=== PATIENT | male | born 1970 | race Caucasian/White ===

== ENCOUNTER 2018-03-13 18:27 | Inpatient (IN) | payer OTHER ==
--- NOTE | 2018-03-13 18:31 | PDOC ---
Rapid Medical Evaluation Medical Evaluation: I have performed a brief in-person evaluation of this patient. The patient presents with a chief complaint of: C/o small amount of hematuria, urinary urgency, dysuria since 4 days ago. Also mentions having fever last night , but did not check temperature. Denies abdominal pain, n/v, penile discharge Pertinent physical exam findings: Mild L CVA TTP, abdomen soft, ND, NT I have ordered the following: Labs, UA, UCx The patient will proceed to the ED for further evaluation. 03/13/18 18:29
[2018-03-13] MEDS ORDERED: SODIUM CHLORIDE 1,000 ML IV STA (18:32)
--- NOTE | 2018-03-13 19:35 | PDOC ---
History of Present Illness - General Chief Complaint: Urinary Problem Stated Complaint: URINARY PROBLEM/FLANK PAIN/URINARY URGENCY Time Seen by Provider: 03/13/18 19:12 History Source: Patient Exam Limitations: No Limitations - History of Present Illness Initial Comments: 03/13/18 19:30 48 yo male no significant pmh presents to the ED for 4 days of blood and pain when urinating. Pt states he has also noticed increased frequency of urination with minimal output and small stones once in a while. Admits to subjective fevers, suprapubic, left flank and back pain but denies N/V, hx of STDs, penile discharge, CP, SOB or changes in bowel habits. Past History - Past Medical History Allergies/Adverse Reactions: Allergies Allergy/AdvReac Type Severity Reaction Status Date / Time No Known Allergies Allergy Verified 03/13/18 18:35 Home Medications: Ambulatory Orders NK [No Known Home Medication] 03/13/18 COPD: No - Suicide/Smoking/Psychosocial Hx Smoking History: Never smoked Information on smoking cessation initiated: No Hx Alcohol Use: No Drug/Substance Use Hx: No Review of Systems - Review of Systems Constitutional: No: Chills, Fever Respiratory: No: Shortness of Breath Cardiac (ROS): No: Chest Pain ABD/GI: Yes: Other (suprapubic abdominal pain). No: Constipated, Diarrhea, Nausea, Vomiting : Yes: Dysuria, Frequency, Flank Pain (left), Hematuria. No: Discharge Musculoskeletal: Yes: Back Pain (left cva and mild right cva) *Physical Exam - Vital Signs Last Vital Signs Temp Pulse Resp BP Pulse Ox 99.1 F 83 18 120/70 100 03/13/18 18:32 03/13/18 18:32 03/13/18 18:32 03/13/18 18:32 03/13/18 18:32 - Physical Exam General Appearance: Yes: Nourished, Appropriately Dressed. No: Apparent Distress HEENT: positive: EOMI Respiratory/Chest: positive: Lungs Clear, Normal Breath Sounds. negative: Accessory Muscle Use, Crackles, Wheezing Cardiovascular: positive: Regular Rhythm, Regular Rate, S1, S2. negative: Edema , JVD, Murmur Vascular Pulses: Dorsalis-Pedis (R): 4+, Doralis-Pedis (L): 4+ Gastrointestinal/Abdominal: positive: Normal Bowel Sounds, Flat, Soft, Tenderness (suprapubic and left flank). negative: Pulsatile Mass, Distended, Guarding, Rebound Musculoskeletal: positive: CVA Tenderness (bilateral, more on the left) Extremity: positive: Normal Capillary Refill Integumentary: positive: Normal Color, Dry, Warm Neurologic: positive: Fully Oriented, Alert, Normal Mood/Affect Moderate Sedation - Procedure Monitoring Vital Signs: Procedure Monitoring Vital Signs Temperature 99.1 F 03/13/18 18:32 Pulse Rate 83 03/13/18 18:32 Respiratory Rate 18 03/13/18 18:32 Blood Pressure 120/70 03/13/18 18:32 O2 Sat by Pulse Oximetry (%) 100 03/13/18 18:32 ED Treatment Course - LABORATORY CBC & Chemistry Diagram: 03/13/18 19:20 03/13/18 19:20 - RADIOLOGY Radiology Studies Ordered: Category Date Time Status SPIRAL- RENAL-STONE CT [CT] Stat CT Scan 03/13/18 19:30 Ordered Medical Decision Making - Medical Decision Making 03/13/18 19:41 48 yo presents to the ED with 4 days of dysuria, urgency, increased frequency, hematuria, suprapubic and left flank/cva tenderness. Vitals WNL DDX includes but is not limited to: Nephroli *DC/Admit/Observation/Transfer Diagnosis at time of Disposition: Pyelonephritis - Discharge Dispostion Condition at time of disposition: Stable Decision to Admit order: Yes - Referrals - Patient Instructions - Post Discharge Activity
--- NOTE | 2018-03-13 19:43 | PDOC ---
Attending Attestation - HPI HPI: 03/13/18 20:34 The patient is a 48 year old male with no past medical history here today for evaluation of hematuria and dysuria. The patient reports that his symptoms began 4 days ago and also notes increased frequency with minimal output and occasional stones in his urine. He also notes associated left flank, back, and suprapubic pain. Patient denies headache, lightheadedness. Denies fever, chills. Denies chest pain, shortness of breath. Denies nausea, vomiting, diarrhea, abdominal pain. Denies any change in bowel movements. Allergies: NKA PCP: none reported - Physicial Exam PE: 03/13/18 21:14 Constitutional: Awake, alert, oriented. No acute distress. Head: Normocephalic. Atraumatic Eyes: PERRL. EOMI. Conjunctivae are not pale. ENT: Mucous membranes are moist and intact. Posterior pharynx without exudates or erythema. Uvula midline. Neck: Supple. Full ROM. No lymphadenopathy. Cardiovascular: Regular rate. Regular rhythm. S1, S2 regular. Distal pulses are 2+ and symmetric. Pulmonary/Chest: No evidence of respiratory distress. Clear to auscultation bilaterally No wheezing, rales or rhonchi. Abdominal: +Suprapubic tenderness. Soft and non-distended. No rebound, guarding or rigidity. No organomegaly. No palpable masses. Good bowel sounds. Back: +right CVA tenderness. Musculoskeletal: No edema. No cyanosis. No clubbing. Full range of motion in all extremities. Nocalf tenderness. Radial/pedal pulses are intact and 2+ bilaterally Skin: Skin is warm and dry. No petechiae. No purpura. Neurological: Alert and oriented to person, place, and time. Cranial nerves II -XII are grossly intact. Normal speech. Strength is grossly symmetric. No sensory deficits. Psychiatric: Good eye contact. Normal interaction, affect and behavior. <Hiren Hays - Last Filed: 03/13/18 21:14> - Resident Resident Name: Rosales Erwin - ED Attending Attestation I have performed the following: I have examined & evaluated the patient, The case was reviewed & discussed with the resident, I agree w/resident's findings & plan, Exceptions are as noted - Medical Decision Making 03/13/18 19:43 I, Dr. Antonia Salomon, DO, attest that this document has been prepared under my direction and personally reviewed by me in its entirety. I further attest, that it accurately reflects all work, treatment, procedures and medical decision -making performed by me. 03/13/18 21:09 a/p: 48yo male with multiple days of suprapubic pain and dysuria -passing stones today and hematuria/dysuria -pain with urination -R flank pain -concerning for pyelo vs renal colic -will send labs, ua, ucx -will monitor and reassess 03/13/18 21:10 wbc 18, cystitis on ct -R flank pain, clinically pyelo -subjective fevers at home -will start iv abx and will admit for pyelo 03/13/18 21:11 microblog sent to [facility] 03/13/18 22:34 resident discussed the case with [facility] who accepts pt to service <Antonia Salomon - Last Filed: 03/13/18 22:35>
[2018-03-13 20:13] LABS: URINE APPEARANCE CLEAR; URINE BILIRUBIN NEGATIVE (<2.0 mg/dL); URINE COLOR LTYELLOW; URINE GLUCOSE (UA) NEGATIVE (NEGATIVE); URINE KETONE NEGATIVE (NEGATIVE); URINE LEUK ESTERASE 2+ (NEGATIVE); URINE NITRITE NEGATIVE (NEGATIVE); URINE PROTEIN NEGATIVE (NEGATIVE); URINE UROBILINOGEN NEGATIVE mg/dL (0.2-1.0)
[2018-03-13 20:17] LABS: ANION GAP 6 MMOL/L (8-16); BLOOD UREA NITROGEN 14 mg/dL (7-18); CALCIUM 8.6 mg/dL (8.5-10.1); CHLORIDE 104 mmol/L (98-107); CO2 27 mmol/L (21-32); GLUCOSE,RANDOM 112 mg/dL (74-106); POTASSIUM 3.6 mmol/L (3.5-5.1); SODIUM 137 mmol/L (136-145)
[2018-03-13 20:19] LABS: BASO % 0.3 % (0-2.0); EOS % 0.6 % (0-4.5); HEMATOCRIT 36.1 % (35.4-49); HEMOGLOBIN 12.5 GM/dL (11.7-16.9); LYMPH % 15.1 % (8-40); MCH 31.2 pg (25.7-33.7); MCHC 34.6 g/dl (32.0-35.9); MEAN PLT VOLUME 7.9 fl (7.5-11.1); MONO % 8.8 % (3.8-10.2); NEUT % 75.2 % (42.8-82.8); PLATELET COUNT 280 K/MM3 (134-434); RBC 4.01 M/mm3 (4.00-5.60); RDW 13.5 % (11.9-15.9); WHITE BLOOD COUNT 18.4 K/mm3 (4.0-10.0)
[2018-03-13 20:27] LABS: URINE MUCUS RARE
[2018-03-13] MEDS ORDERED: CEFTRIAXONE 1 GM in DEXTROSE 5%-WATER - 100 ML IVPB ONE (21:02)
--- NOTE | 2018-03-13 21:40 | HP ---
CHIEF COMPLAINT: R flank pain w/ hematuria PCP: HISTORY OF PRESENT ILLNESS: 48 yo M no significant pmh presents to the ED for subj fevers, sudden onset of sharp stabbing non radiating 10/10 R flank pain w/ hematuria and dysuria x4d. Pt states he has also noticed increased frequency of urination with minimal output and passed "small stones" once in a while. Admits to subjective fevers, suprapubic, flank and back pain but denies N/V/d, hx of STDs, penile discharge, CP, SOB, constipation, hx of kidney stones, changes in diet. pt admits to balanced diet but does eat a lot of meat. pt says his friend from gave him Penicillin this past week but did not help. ER course was notable for: (1)1L NS, CTX, CT A/P (2)UA 2+ leuk est, wbc 98 (3)leukocytosis Recent Travel: PAST MEDICAL HISTORY: PAST SURGICAL HISTORY: Social History: Smoking: DENIES Alcohol: occasional Drugs: DENIES Family History: mom HTN Allergies No Known Allergies Allergy (Verified 03/13/18 18:35) HOME MEDICATIONS: Home Medications Medication Instructions Recorded NK [No Known Home Medication] 03/13/18 REVIEW OF SYSTEMS as per HPI PHYSICAL EXAMINATION Vital Signs - 24 hr 03/13/18 18:32 Temperature 99.1 F Pulse Rate 83 Respiratory 18 Rate Blood Pressure 120/70 O2 Sat by Pulse 100 Oximetry (%) GENERAL: AOX3 NAD HEAD: NCAT EYES: PERRLA EOMI, sclera anicteric, conjunctiva clear. No lid lag. EARS, NOSE, THROAT: Ears normal, nares patent, oropharynx clear without exudates. MMM NECK: Normal range of motion, supple without lymphadenopathy, JVD, or masses. LUNGS: CTAB HEART: RRRR, normal S1 and S2 without murmur, rub or gallop. ABDOMEN: Soft, SUPRAPUBIC TENDERNESS, not distended, normoactive bowel sounds, no guarding, no rebound, no masses. MUSCULOSKELETAL: Normal range of motion at all joints. No bony deformities or tenderness. R CVA tenderness. RECTAL: no masses or bleeding, soft nontender prostate UPPER EXTREMITIES: 2+ pulses, warm, well-perfused. No cyanosis. No clubbing. No peripheral edema. LOWER EXTREMITIES: 2+ pulses, warm, well-perfused. No calf tenderness. No peripheral edema. NEUROLOGICAL: Cranial nerves II-XII intact. Normal speech. PSYCHIATRIC: Cooperative. Good eye contact. Appropriate mood and affect. SKIN: Warm, dry, normal turgor, no rashes or lesions noted, normal capillary refill. Laboratory Results - last 24 hr 03/13/18 03/13/18 03/13/18 19:20 19:20 19:20 WBC 18.4 H RBC 4.01 Hgb 12.5 Hct 36.1 MCV 90.0 MCH 31.2 MCHC 34.6 RDW 13.5 Plt Count 280 MPV 7.9 Absolute Neuts (auto) 13.8 H Neutrophils % 75.2 Lymphocytes % 15.1 Monocytes % 8.8 Eosinophils % 0.6 Basophils % 0.3 Nucleated RBC % 0 Sodium 137 Potassium 3.6 Chloride 104 Carbon Dioxide 27 Anion Gap 6 L BUN 14 Creatinine 1.0 Creat Clearance w eGFR > 60 Random Glucose 112 H Calcium 8.6 Urine Color Ltyellow Urine Appearance Clear Urine pH 6.0 Ur Specific Hye 1.011 Urine Protein Negative Urine Glucose (UA) Negative Urine Ketones Negative Urine Blood 2+ H Urine Nitrite Negative Urine Bilirubin Negative Urine Urobilinogen Negative Ur Leukocyte Esterase 2+ H Urine WBC (Auto) 98 Urine RBC (Auto) 10 Urine Mucus Rare ASSESSMENT/PLAN: 48 yo M no significant pmh presents to the ED for subj fevers, sudden onset of sharp stabbing non radiating 10/10 R flank pain w/ hematuria and dysuria x4d. Pyelonephritis - flank pain improved and hematuria has resolved. No stone noted on CT, pt may have passed stone. Prostate exam nl, prostatitis unlikely. s/p 1L NS, 1g CTX in ED CT A/P - no hydro or stones noted. mild diffuse bladder wall thickening. mild enlarged prostate UA 2+ leuk est, wbc 98 f/u Ucx leukocytosis 18.4 IV Rocephin 1 gm qd pending culture report and IV NS. 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 - New Patient This patient is new to me today: Yes Date on this admission: 03/13/18 - Critical Care Critical Care patient: No
--- NOTE | 2018-03-13 22:45 | PN ---
Teaching Attending Note Name of Resident: Jacob Acevedo ATTENDING PHYSICIAN STATEMENT I saw and evaluated the patient. I reviewed the resident's note and discussed the case with the resident. I agree with the resident's findings and plan as documented. SUBJECTIVE: Patient is a 48 year man with no significant PMH presents to the ER for 4 days of "blood" in the urine and pain when urinating. Pateint states he has also noticed increased frequency of urination with minimal output and small stones once in a while. Admits to subjective fevers, suprapubic, left flank and back pain but denies nausea, vomiting, history of STDs, penile discharge or changes in bowel habits. OBJECTIVE: Alert Vital Signs Period Temp Pulse Resp BP Sys/Deleon Pulse Ox Last 24 Hr 99.1 F 83 18 120/70 100 HEENT: No Jaundice, eye redness or discharge, PERRLA, EOMI. Normocephalic, atraumatic. External ears are normal and hearing is grossly intact. No nasal discharge. Neck: Supple, nontender. No palpable adenopathy or thyromegaly. No JVD Chest: Good effort. Clear to auscultation and percussion. Heart: Regular. No S3, rub or murmur Abdomen: Not distended, soft, right CVAT and suprapubic tenderness and no HSM. No rebound or guarding. Normoactive bowel sounds. Ext: Peripheral pulses intact. No leg edema. Skin: Warm and dry. No petechiae, rash or ecchymosis. Neuro: Alert. Oriented x3. CN 2-12 grossly intact. Sensation grossly intact in all four extremities and DTR are symmetric. Home Medications Medication Instructions Recorded NK [No Known Home Medication] 03/13/18 Abnormal Lab Results 03/13/18 03/13/18 03/13/18 19:20 19:20 19:20 WBC 18.4 H Absolute Neuts (auto) 13.8 H Anion Gap 6 L Random Glucose 112 H Urine Blood 2+ H Ur Leukocyte Esterase 2+ H ASSESSMENT AND PLAN: 1. Pyelonephritis - Being treated with IV Rocephin 1 gm Q 24 hours pending culture report and IV NS. 2. DVT prophylaxis - Lovenox 40 mg SQ q 24 hours. 3. Advance directives - Full code
[2018-03-13] MEDS ORDERED: ACETAMINOPHEN 325 MG TABLET (FP) PO PRN (22:48)
[2018-03-13] MEDS: SODIUM CHLORIDE 1,000 ML IV SCH (23:14)
[2018-03-13] MEDS ORDERED: CEFTRIAXONE 1 GM/50 ML BAG ONE (23:18)
[2018-03-14 07:04] LABS: BASO % 0.2 % (0-2.0); EOS % 1.3 % (0-4.5); HEMATOCRIT 33.2 % (35.4-49); HEMOGLOBIN 11.5 GM/dL (11.7-16.9); MCH 31.7 pg (25.7-33.7); MCHC 34.6 g/dl (32.0-35.9); MEAN CELL VOLUME 91.6 fl (80-96); MEAN PLT VOLUME 7.7 fl (7.5-11.1); NEUT % 66.5 % (42.8-82.8); PLATELET COUNT 257 K/MM3 (134-434); RBC 3.63 M/mm3 (4.00-5.60); RDW 13.6 % (11.9-15.9); WHITE BLOOD COUNT 10.5 K/mm3 (4.0-10.0)
[2018-03-14 07:38] LABS: ALBUMIN 2.6 g/dl (3.4-5.0); ALK PHOS 80 U/L (45-117); ANION GAP 2 MMOL/L (8-16); BILIRUBIN,TOTAL 0.3 mg/dL (0.2-1); BLOOD UREA NITROGEN 9 mg/dL (7-18); CALCIUM 7.8 mg/dL (8.5-10.1); CHLORIDE 112 mmol/L (98-107); CO2 27 mmol/L (21-32); CREATININE 0.8 mg/dL (0.55-1.3); GLUCOSE,RANDOM 101 mg/dL (74-106); MAGNESIUM 2.5 mg/dL (1.8-2.4); PHOSPHOROUS 3.6 mg/dL (2.5-4.9); POTASSIUM 4.2 mmol/L (3.5-5.1); SGOT/AST 31 U/L (15-37); SGPT/ALT 33 U/L (13-61); SODIUM 142 mmol/L (136-145); TOT PROT 6.3 g/dl (6.4-8.2)
--- NOTE | 2018-03-14 09:59 | PN ---
Teaching Attending Note Name of Resident: Chely Saxena ATTENDING PHYSICIAN STATEMENT I saw and evaluated the patient. I reviewed the resident's note and discussed the case with the resident. I agree with the resident's findings and plan as documented. SUBJECTIVE: Patient is feeling better post IV antibiotics. As per patient he is and his last sexual contact with his was 2 weeks ago. OBJECTIVE: Vital Signs Temperature 97.7 F 03/14/18 06:31 Pulse Rate 65 03/14/18 06:31 Respiratory Rate 18 03/14/18 06:31 Blood Pressure 108/66 03/14/18 06:31 O2 Sat by Pulse Oximetry (%) 99 03/14/18 06:31 GENERAL: AOX3 NAD, comfrotable. HEAD: NCAT ;EYES: PERRLA EOMI, sclera anicteric, conjunctiva clear. EARS, NOSE, THROAT: Ears normal, oropharynx clear without exudates. MMM NECK: Normal range of motion, supple without lymphadenopathy, JVD, or masses. LUNGS: CTAB HEART:RRR, normal S1 and S2 without murmur, rub or gallop. ABDOMEN: Soft, NT, ND, normoactive bowel sounds, no guarding, no rebound, no masses. EXTREMITIES: 2+ pulses, warm, well-perfused. No cyanosis. No clubbing. No peripheral edema. NEUROLOGICAL: Cranial nerves II-XII intact. Normal speech. PSYCHIATRIC: Cooperative. Good eye contact. Appropriate mood and affect. SKIN: Warm, dry, normal turgor, no rashes or lesions noted, normal capillary refill. CBCD WBC 10.5 K/mm3 (4.0-10.0) H 03/14/18 06:40 RBC 3.63 M/mm3 (4.00-5.60) L 03/14/18 06:40 Hgb 11.5 GM/dL (11.7-16.9) L 03/14/18 06:40 Hct 33.2 % (35.4-49) L 03/14/18 06:40 MCV 91.6 fl (80-96) 03/14/18 06:40 MCHC 34.6 g/dl (32.0-35.9) 03/14/18 06:40 RDW 13.6 % (11.9-15.9) 03/14/18 06:40 Plt Count 257 K/MM3 (134-434) 03/14/18 06:40 MPV 7.7 fl (7.5-11.1) 03/14/18 06:40 CMP Sodium 142 mmol/L (136-145) 03/14/18 06:40 Potassium 4.2 mmol/L (3.5-5.1) 03/14/18 06:40 Chloride 112 mmol/L (98-107) H 03/14/18 06:40 Carbon Dioxide 27 mmol/L (21-32) 03/14/18 06:40 Anion Gap 2 MMOL/L (8-16) L 03/14/18 06:40 BUN 9 mg/dL (7-18) 03/14/18 06:40 Creatinine 0.8 mg/dL (0.55-1.3) 03/14/18 06:40 Creat Clearance w eGFR > 60 (>60) 03/14/18 06:40 Random Glucose 101 mg/dL (74-106) 03/14/18 06:40 Calcium 7.8 mg/dL (8.5-10.1) L 03/14/18 06:40 Total Bilirubin 0.3 mg/dL (0.2-1) 03/14/18 06:40 AST 31 U/L (15-37) 03/14/18 06:40 ALT 33 U/L (13-61) 03/14/18 06:40 Alkaline Phosphatase 80 U/L (45-117) 03/14/18 06:40 Total Protein 6.3 g/dl (6.4-8.2) L 03/14/18 06:40 Albumin 2.6 g/dl (3.4-5.0) L 03/14/18 06:40 Current Medications Generic Name Dose Route Start Last Admin Trade Name Freq PRN Reason Stop Dose Admin Acetaminophen 650 mg 03/13/18 22:48 Tylenol - PO Q4H PRN FEVER Enoxaparin Sodium 40 mg 03/14/18 10:00 Lovenox - SQ DAILY GREG Sodium Chloride 1,000 mls @ 125 mls/hr 03/13/18 23:00 03/13/18 23:14 Normal Saline - IV 125 mls/hr ASDIR GREG Administration Ceftriaxone Sodium 1 gm/ 50 mls @ 100 mls/hr 03/14/18 22:00 Dextrose IVPB HS GREG Home Medications Medication Instructions Recorded NK [No Known Home Medication] 03/13/18 CT A/P - no hydro or stones noted. mild diffuse bladder wall thickening. mild enlarged prostate ASSESSMENT AND PLAN: Patient is a 48 yo M with no significant PMHx , presents to the ED for having fevers, right flank pain 10/10 w/ hematuria and dysuria x 4days. # Acute Pyelonephritis - flank pain and hematuria resolved. continue IV antibiotics Rocephin, Id on the case for possible GC/chlamydia and HIv testing. DVT prophylaxis :Lovenox 40 mg SQ qd Full code med/surg
[2018-03-14] MEDS: ENOXAPARIN NA (PORCINE) 40 MG/0.4 ML DISP.SYRIN SQ SCH (11:23)
--- NOTE | 2018-03-14 12:03 | EKG ---
Test Reason : Blood Pressure : / mmHG Vent. Rate : 073 BPM Atrial Rate : 073 BPM P-R Int : 160 ms QRS Dur : 082 ms QT Int : 384 ms P-R-T Axes : 069 065 062 degrees QTc Int : 423 ms NORMAL SINUS RHYTHM EARLY REPOLARIZATION NORMAL ECG NO PREVIOUS ECGS AVAILABLE Confirmed by ARELIS COLES, NAZANIN ([id number]) on 03/14/2018 12:03:01 PM Referred By: Confirmed By:NAZANIN INFANTE MD
[2018-03-14 14:27] VITALS: BMI 21.2
--- NOTE | 2018-03-14 15:56 | CON.ID ---
Consult Consult Specialty:: infectious disease Referred by:: hospitalist Reason for Consultation:: hematurea,dysuria - History of Present Illness Chief Complaint: hematuria, dysuria History of Present Illness: 4 day history of hematuria, dysuria, urinary urgency, some suprapubic pain, fever took two doses of amox never had a uti before +left flank pain lives with -only partner started on rocephin in ed feels better today rectal exam in ED nontender - History Source History Provided By: Patient, Medical Record Limitations to Obtaining History: No Limitations - Alcohol/Substance Use Hx Alcohol Use: Yes History of Substance Use: reports: None - Smoking History Smoking history: Never smoked - Social History Usual Living Arrangement: With Spouse ADL: Independent Occupation: construction Place of : Other ([employer]) History of Recent Travel: No Home Medications - Allergies Allergies/Adverse Reactions: Allergies Allergy/AdvReac Type Severity Reaction Status Date / Time No Known Allergies Allergy Verified 03/13/18 18:35 - Home Medications Home Medications: Ambulatory Orders NK [No Known Home Medication] 03/13/18 Family Disease History - Family Disease History Family History: Denies Review of Systems - Review of Systems Constitutional: reports: Fever Eyes: reports: No Symptoms HENT: reports: No Symptoms Neck: reports: No Symptoms Cardiovascular: reports: No Symptoms. denies: Chest Pain Respiratory: reports: No Symptoms. denies: Cough Gastrointestinal: reports: No Symptoms. denies: Abdominal Pain, Nausea, Vomiting Genitourinary: reports: Burning, Dysuria, Flank Pain (left), Hematuria, Other ( suprapubic pain) Musculoskeletal: reports: No Symptoms Physical Exam Vital Signs: Vital Signs Temperature 97.9 F 03/14/18 14:18 Pulse Rate 56 L 03/14/18 14:18 Respiratory Rate 20 03/14/18 14:18 Blood Pressure 109/70 03/14/18 14:18 O2 Sat by Pulse Oximetry (%) 98 03/14/18 14:18 Constitutional: Yes: Well Nourished, No Distress, Calm Eyes: Yes: Conjunctiva Clear, EOM Intact HENT: Yes: Atraumatic, Normocephalic. No: Thrush Neck: Yes: Supple, Trachea Midline Cardiovascular: Yes: Regular Rate and Rhythm Respiratory: Yes: Regular, CTA Bilaterally Gastrointestinal: Yes: Normal Bowel Sounds, Soft ...Rectal Exam: Yes: Deferred Renal/: No: Bladder Distention, CVA Tenderness - Left, CVA Tenderness - Right Extremities: Yes: WNL Edema: No Peripheral Pulses WNL: No Integumentary: Yes: WNL Psychiatric: Yes: Alert, Oriented Labs: CBC, BMP 03/14/18 06:40 03/14/18 06:40 Laboratory Tests 03/13/18 19:20 Urine Blood 2+ H Ur Leukocyte Esterase 2+ H Urine WBC (Auto) 98 Imaging - Results Cat Scan: Report Reviewed (no hydronephrosis, mild bladder wall thickening, moderate fecal retention) Problem List - Problems (1) Pyelonephritis Code(s): N12 - TUBULO-INTERSTITIAL NEPHRITIS, NOT SPCF ACUTE OR CHRONIC Assessment/Plan continue ceftriaxone, cliniclly improved agreeable to hiv testing will obtain urine for gc/chlamydia f/u cultures in am
--- NOTE | 2018-03-14 17:55 | PN ---
Physical Exam: SUBJECTIVE: Patient seen and examined at bedside this morning. Patient was admitted for right flank pain and suprapubic pain, accompanied by subjective fevers, hematuria and dysuria for 5 days. Today, patient reports resolution of symptoms, now with no hematuria and dysuria, and minimal suprapubic pain. Otherwise, denies fever, chills, nausea, vomiting, chest pain, SOB, palpitations , diarrhea. OBJECTIVE: Vital Signs Period Temp Pulse Resp BP Sys/Deleon Pulse Ox Last 24 Hr 97.6 F-99.1 F 55-83 16-22 108-120/66-75 97-100 GENERAL: The patient is awake, alert, and fully oriented, in no acute distress. HEAD: Normal with no signs of trauma. EYES: PERRLA, EOMI, sclera anicteric, conjunctiva clear. ENT: Ears normal, nares patent, oropharynx clear without exudates, moist mucous membranes. NECK: Trachea midline, full range of motion, supple. LUNGS: Breath sounds equal, clear to auscultation bilaterally. HEART: Regular rate and rhythm, S1, S2 without murmur, rub or gallop. ABDOMEN: Soft, mildly suprapubic tenderness, nondistended, normoactive bowel sounds. EXTREMITIES: 2+ pulses, warm, well-perfused, no edema. NEUROLOGICAL: Cranial nerves II through XII grossly intact. Normal speech, normal gait. SKIN: Warm, dry, normal turgor, no rashes or lesions noted Laboratory Results - last 24 hr 03/13/18 03/13/18 03/13/18 19:20 19:20 19:20 WBC 18.4 H RBC 4.01 Hgb 12.5 Hct 36.1 MCV 90.0 MCH 31.2 MCHC 34.6 RDW 13.5 Plt Count 280 MPV 7.9 Absolute Neuts (auto) 13.8 H Neutrophils % 75.2 Lymphocytes % 15.1 Monocytes % 8.8 Eosinophils % 0.6 Basophils % 0.3 Nucleated RBC % 0 Sodium 137 Potassium 3.6 Chloride 104 Carbon Dioxide 27 Anion Gap 6 L BUN 14 Creatinine 1.0 Creat Clearance w eGFR > 60 Random Glucose 112 H Calcium 8.6 Phosphorus Magnesium Total Bilirubin AST ALT Alkaline Phosphatase Total Protein Albumin Urine Color Ltyellow Urine Appearance Clear Urine pH 6.0 Ur Specific [place] 1.011 Urine Protein Negative Urine Glucose (UA) Negative Urine Ketones Negative Urine Blood 2+ H Urine Nitrite Negative Urine Bilirubin Negative Urine Urobilinogen Negative Ur Leukocyte Esterase 2+ H Urine WBC (Auto) 98 Urine RBC (Auto) 10 Urine Mucus Rare 03/14/18 03/14/18 06:40 06:40 WBC 10.5 H RBC 3.63 L Hgb 11.5 L Hct 33.2 L MCV 91.6 MCH 31.7 MCHC 34.6 RDW 13.6 Plt Count 257 MPV 7.7 Absolute Neuts (auto) 7.0 Neutrophils % 66.5 Lymphocytes % 21.0 D Monocytes % 11.0 H Eosinophils % 1.3 D Basophils % 0.2 Nucleated RBC % 0 Sodium 142 Potassium 4.2 Chloride 112 H Carbon Dioxide 27 Anion Gap 2 L BUN 9 Creatinine 0.8 Creat Clearance w eGFR > 60 Random Glucose 101 Calcium 7.8 L Phosphorus 3.6 Magnesium 2.5 H Total Bilirubin 0.3 AST 31 ALT 33 Alkaline Phosphatase 80 Total Protein 6.3 L Albumin 2.6 L Urine Color Urine Appearance Urine pH Ur Specific [place] Urine Protein Urine Glucose (UA) Urine Ketones Urine Blood Urine Nitrite Urine Bilirubin Urine Urobilinogen Ur Leukocyte Esterase Urine WBC (Auto) Urine RBC (Auto) Urine Mucus Active Medications Generic Name Dose Route Start Last Admin Trade Name Freq PRN Reason Stop Dose Admin Acetaminophen 650 mg 03/13/18 22:48 Tylenol - PO Q4H PRN FEVER Enoxaparin Sodium 40 mg 03/14/18 10:00 03/14/18 11:23 Lovenox - SQ 40 mg DAILY GREG Administration Sodium Chloride 1,000 mls @ 125 mls/hr 03/13/18 23:00 03/13/18 23:14 Normal Saline - IV 125 mls/hr ASDIR GREG Administration Ceftriaxone Sodium 1 gm/ 50 mls @ 100 mls/hr 03/14/18 22:00 Dextrose IVPB HS [facility] ASSESSMENT/PLAN: #Complicated cystitis -UA: Blood 2+, RBC 10, LE 2+, WBC 98 -Leukocytosis improved from 18.4 --> 10.5 -CTAP: No evidence of urolithiasis or hydronephrosis. Probable mild diffuse urinary bladder wall thickening - ?on the basis of acute and/or chronic cystitis vs chronic outlet obstruction (mild prostate enlargement) -Urine culture pending -ID (Dr. Galindo) consulted. Recommendations appreciated. -Continue Ceftriaxone 1gm daily -Patient agreeable to HIV testing -Urine for gc/chlamydia -Follow up cultures in the morning #FEN -IV NS at 125ml/hr -electrolytes wnl, routine bmp monitoring -regular diet #Prophylaxis -Lovenox 40mg sq daily #Disposition -full code -med surg Visit type - Emergency Visit Emergency Visit: Yes ED Registration Date: 03/13/18 Care time: The patient presented to the Emergency Department on the above date and was hospitalized for further evaluation of their emergent condition. - New Patient This patient is new to me today: Yes Date on this admission: 03/14/18 - Critical Care Critical Care patient: No
[2018-03-14] MEDS ORDERED: DEXTROSE 5%-WATER - 50 ML IVPB ONE (20:46)
[2018-03-14] MEDS ORDERED: cefTRIAXone SODIUM 1 GM VIAL ONE (20:46)
[2018-03-14] MEDS: CEFTRIAXONE 1 GM in DEXTROSE 5%-WATER - 50 ML IVPB SCH (21:08)
[2018-03-14] MEDS: SODIUM CHLORIDE 1,000 ML IV SCH (23:00)
[2018-03-15] MEDS: SODIUM CHLORIDE 1,000 ML IV SCH ×2 (03:00→09:46)
[2018-03-15] MEDS ORDERED: PT OWN MED DRAWER 7, Y5N ONE (06:05)
[2018-03-15 08:24] LABS: BASO % 0.4 % (0-2.0); EOS % 1.3 % (0-4.5); HEMATOCRIT 38.8 % (35.4-49); HEMOGLOBIN 12.4 GM/dL (11.7-16.9); LYMPH % 18.5 % (8-40); MCH 29.2 pg (25.7-33.7); MCHC 31.9 g/dl (32.0-35.9); MEAN CELL VOLUME 91.6 fl (80-96); MEAN PLT VOLUME 7.7 fl (7.5-11.1); MONO % 12.8 % (3.8-10.2); PLATELET COUNT 280 K/MM3 (134-434); RBC 4.24 M/mm3 (4.00-5.60); RDW 13.9 % (11.9-15.9); WHITE BLOOD COUNT 7.3 K/mm3 (4.0-10.0)
[2018-03-15 09:08] LABS: ANION GAP 7 MMOL/L (8-16); BLOOD UREA NITROGEN 7 mg/dL (7-18); CALCIUM 8.7 mg/dL (8.5-10.1); CHLORIDE 107 mmol/L (98-107); CO2 27 mmol/L (21-32); CREATININE 0.9 mg/dL (0.55-1.3); GLUCOSE,RANDOM 92 mg/dL (74-106); MAGNESIUM 2.5 mg/dL (1.8-2.4); POTASSIUM 3.9 mmol/L (3.5-5.1); SODIUM 140 mmol/L (136-145)
[2018-03-15] MEDS: ENOXAPARIN NA (PORCINE) 40 MG/0.4 ML DISP.SYRIN SQ SCH (09:44)
--- NOTE | 2018-03-15 10:11 | PN ---
Teaching Attending Note Name of Resident: Chely Saxena ATTENDING PHYSICIAN STATEMENT I saw and evaluated the patient. I reviewed the resident's note and discussed the case with the resident. I agree with the resident's findings and plan as documented. SUBJECTIVE: Patient has no fever or chills. OBJECTIVE: Vital Signs Temperature 98.2 F 03/15/18 08:56 Pulse Rate 70 03/15/18 08:56 Respiratory Rate 20 03/15/18 08:56 Blood Pressure 105/66 03/15/18 08:56 O2 Sat by Pulse Oximetry (%) 97 03/14/18 21:00 GENERAL: AOX3 NAD, comfrotable. HEAD: NCAT ;EYES: PERRLA EOMI, sclera anicteric, conjunctiva clear. EARS, NOSE, THROAT: Ears normal, oropharynx clear without exudates. MMM NECK: Normal range of motion, supple without lymphadenopathy, JVD, or masses. LUNGS: CTAB HEART:RRR, normal S1 and S2 without murmur, rub or gallop. ABDOMEN: Soft, NT, ND, normoactive bowel sounds, no guarding, no rebound, no masses. EXTREMITIES: 2+ pulses, warm, well-perfused. No cyanosis. No clubbing. No peripheral edema. NEUROLOGICAL: Cranial nerves II-XII intact. Normal speech. PSYCHIATRIC: Cooperative. Good eye contact. Appropriate mood and affect. SKIN: Warm, dry, normal turgor, no rashes or lesions noted, normal capillary refill. CBCD WBC 7.3 K/mm3 (4.0-10.0) 03/15/18 07:30 RBC 4.24 M/mm3 (4.00-5.60) 03/15/18 07:30 Hgb 12.4 GM/dL (11.7-16.9) 03/15/18 07:30 Hct 38.8 % (35.4-49) D 03/15/18 07:30 MCV 91.6 fl (80-96) 03/15/18 07:30 MCHC 31.9 g/dl (32.0-35.9) L 03/15/18 07:30 RDW 13.9 % (11.9-15.9) 03/15/18 07:30 Plt Count 280 K/MM3 (134-434) 03/15/18 07:30 MPV 7.7 fl (7.5-11.1) 03/15/18 07:30 CMP Sodium 140 mmol/L (136-145) 03/15/18 07:30 Potassium 3.9 mmol/L (3.5-5.1) 03/15/18 07:30 Chloride 107 mmol/L (98-107) 03/15/18 07:30 Carbon Dioxide 27 mmol/L (21-32) 03/15/18 07:30 Anion Gap 7 MMOL/L (8-16) L 03/15/18 07:30 BUN 7 mg/dL (7-18) 03/15/18 07:30 Creatinine 0.9 mg/dL (0.55-1.3) 03/15/18 07:30 Creat Clearance w eGFR > 60 (>60) 03/15/18 07:30 Random Glucose 92 mg/dL (74-106) 03/15/18 07:30 Calcium 8.7 mg/dL (8.5-10.1) 03/15/18 07:30 Total Bilirubin 0.3 mg/dL (0.2-1) 03/14/18 06:40 AST 31 U/L (15-37) 03/14/18 06:40 ALT 33 U/L (13-61) 03/14/18 06:40 Alkaline Phosphatase 80 U/L (45-117) 03/14/18 06:40 Total Protein 6.3 g/dl (6.4-8.2) L 03/14/18 06:40 Albumin 2.6 g/dl (3.4-5.0) L 03/14/18 06:40 Current Medications Generic Name Dose Route Start Last Admin Trade Name Freq PRN Reason Stop Dose Admin Acetaminophen 650 mg 03/13/18 22:48 Tylenol - PO Q4H PRN FEVER Enoxaparin Sodium 40 mg 03/14/18 10:00 03/15/18 09:44 Lovenox - SQ 40 mg DAILY GREG Administration Sodium Chloride 1,000 mls @ 125 mls/hr 03/13/18 23:00 03/15/18 09:46 Normal Saline - IV 125 mls/hr ASDIR GREG Administration Ceftriaxone Sodium 1 gm/ 50 mls @ 100 mls/hr 03/14/18 22:00 03/14/18 21:08 Dextrose IVPB 100 mls/hr HS GREG Administration Home Medications Medication Instructions Recorded NK [No Known Home Medication] 03/13/18 Microbiology 03/13/18 23:55 Blood - Peripheral Venous Blood Culture - Preliminary Streptococcus Mitis 03/13/18 19:20 Urine - Urine Clean Catch Urine Culture - Preliminary Lactose Fermenting Neg Bacilli 03/13/18 23:55 Blood - Peripheral Venous Blood Culture - Preliminary NO GROWTH OBTAINED AFTER 24 HOURS, INCUBATION TO CONTINUE FOR [address] A/P - no hydro or stones noted. mild diffuse bladder wall thickening. mild enlarged prostate ASSESSMENT AND PLAN: Patient is a 48 yo M with no significant PMHx , presents to the ED for having fevers, right flank pain 10/10 w/ hematuria and dysuria x 4days. # Acute Pyelonephritis - improving continue IV antibiotics Rocephin continue , Id on the case , GC/chlamydia is pending and HIv is negative. DVT prophylaxis :Lovenox 40 mg SQ qd Full code med/surg
--- NOTE | 2018-03-15 12:14 | PN ---
Progress Note (short form) - Note Progress Note: no complaints feels well Vital Signs Period Temp Pulse Resp BP Sys/Deleon Pulse Ox Last 24 Hr 97.9 F-98.5 F 55-70 18-20 105-111/64-75 96-98 no conjunctival hemorrhages cor-rrr lungs clear abd soft,nt ext no edema no flank or suprapubic pain CBC, BMP 03/15/18 07:30 03/15/18 07:30 Microbiology 03/13/18 19:20 Urine - Urine Clean Catch Urine Culture - Preliminary Lactose Fermenting Neg Bacilli 03/13/18 23:55 Blood - Peripheral Venous Blood Culture - Preliminary Alpha Hemolytic Streptococcus 03/13/18 23:55 Blood - Peripheral Venous Blood Culture - Preliminary NO GROWTH OBTAINED AFTER 24 HOURS, INCUBATION TO CONTINUE FOR 4 DAYS. Laboratory Tests 03/13/18 03/15/18 19:20 07:30 Urine Blood 2+ H Ur Leukocyte Esterase 2+ H Urine WBC (Auto) 98 HIV 1&2 Antibody Screen Negative HIV P24 Antigen Negative a/p uti- awaiting culture information clinically improved positive blood culture- strep- ?skin contaminant-no signs IE repeat blood culture, echo esr/crp f/u in am Problem List - Problems (1) Pyelonephritis Code(s): N12 - TUBULO-INTERSTITIAL NEPHRITIS, NOT SPCF ACUTE OR CHRONIC
--- NOTE | 2018-03-15 14:22 | PN ---
Physical Exam: SUBJECTIVE: Patient seen and examined at bedside this morning. No acute events overnight. Patient reports urine has cleared and denies hematuria, dysuria. He also denies bank pain or abdominal pain. Otherwise, he has no new concerns. OBJECTIVE: Vital Signs Period Temp Pulse Resp BP Sys/Deleon Pulse Ox Last 24 Hr 98.1 F-98.5 F 63-70 18-20 105-109/64-74 96-97 GENERAL: The patient is awake, alert, and fully oriented, in no acute distress. HEAD: Normal with no signs of trauma. EYES: PERRLA, EOMI, sclera anicteric, conjunctiva clear. ENT: Ears normal, nares patent, oropharynx clear without exudates, moist mucous membranes. NECK: Trachea midline, full range of motion, supple. LUNGS: Breath sounds equal, clear to auscultation bilaterally. HEART: Regular rate and rhythm, S1, S2 without murmur, rub or gallop. ABDOMEN: Soft, nontender, nondistended, normoactive bowel sounds. EXTREMITIES: 2+ pulses, warm, well-perfused, no edema. NEUROLOGICAL: Cranial nerves II through XII grossly intact. Normal speech, normal gait. SKIN: Warm, dry, normal turgor, no rashes or lesions noted Laboratory Results - last 24 hr 03/15/18 03/15/18 03/15/18 07:30 07:30 07:30 WBC 7.3 RBC 4.24 Hgb 12.4 Hct 38.8 D MCV 91.6 MCH 29.2 MCHC 31.9 L RDW 13.9 Plt Count 280 MPV 7.7 Absolute Neuts (auto) 4.9 Neutrophils % 67.0 Lymphocytes % 18.5 Monocytes % 12.8 H Eosinophils % 1.3 Basophils % 0.4 Nucleated RBC % 0 Sodium 140 Potassium 3.9 Chloride 107 Carbon Dioxide 27 Anion Gap 7 L BUN 7 Creatinine 0.9 Creat Clearance w eGFR > 60 Random Glucose 92 Calcium 8.7 Phosphorus 4.0 Magnesium 2.5 H HIV 1&2 Antibody Screen Negative HIV P24 Antigen Negative Active Medications Generic Name Dose Route Start Last Admin Trade Name Freq PRN Reason Stop Dose Admin Acetaminophen 650 mg 03/13/18 22:48 Tylenol - PO Q4H PRN FEVER Enoxaparin Sodium 40 mg 03/14/18 10:00 03/15/18 09:44 Lovenox - SQ 40 mg DAILY GREG Administration Sodium Chloride 1,000 mls @ 125 mls/hr 03/13/18 23:00 03/15/18 09:46 Normal Saline - IV 125 mls/hr ASDIR GREG Administration Ceftriaxone Sodium 1 gm/ 50 mls @ 100 mls/hr 03/14/18 22:00 03/14/18 21:08 Dextrose IVPB 100 mls/hr HS GREG Administration ASSESSMENT/PLAN: Patient is a 48 year old male with no significant past medical history, presented with hematuria and dysuria, accompanied by suprapubic and right flank pain for 5 days. #Complicated cystitis -UA: Blood 2+, RBC 10, LE 2+, WBC 98 -Leukocytosis resolved -CTAP: No evidence of urolithiasis or hydronephrosis. Probable mild diffuse urinary bladder wall thickening - ?on the basis of acute and/or chronic cystitis vs chronic outlet obstruction (mild prostate enlargement) -Urine culture - growing lactose fermenting gram negative bacilli -ID (Dr. Galindo) consulted. Recommendations appreciated. -Continue Ceftriaxone 1gm daily -HIV - negative -Urine for gc/chlamydia - pending -ESR/CRP -positive blood culture growing strep -- likely contaminant? -Repeat blood culture -Echo done - LV normal, EF 55-60% -Follow up cultures in the morning #FEN -IV NS at 125ml/hr -electrolytes wnl, routine bmp monitoring -regular diet #Prophylaxis -Lovenox 40mg sq daily #Disposition -full code -med surg Visit type - Emergency Visit Emergency Visit: Yes ED Registration Date: 03/13/18 Care time: The patient presented to the Emergency Department on the above date and was hospitalized for further evaluation of their emergent condition. - New Patient This patient is new to me today: No - Critical Care Critical Care patient: No
--- NOTE | 2018-03-15 14:57 | ECHO ---
Name: POPEYEVALERI GUNTER Exam:Adult Echocardiogram Study Date: 03/15/2018 02:18 PM Age: 48 yrs Reason For Study: BACTEREMIA R/O ENDOCARDITIS Height: 67 in Weight: 135 lb BSA: 1.7 m2 MMode/2D Measurements & Calculations IVSd: 0.80 cm Ao root diam: 3.1 cm LVIDd: 4.6 cm LA dimension: 2.7 cm LVIDs: 3.0 cm LVPWd: 0.78 cm EDV(Teich): 99.0 ml TAPSE: 2.9 cm ESV(Teich): 36.4 ml Doppler Measurements & Calculations MV E max gunnar: 94.8 cm/sec TR max gunnar: 201.6 cm/sec MV A max gunnar: 69.1 cm/sec TR max P.3 mmHg MV E/A: 1.4 MV dec time: 0.20 sec Left Ventricle The left ventricular size, thickness and function are normal. Ejection Fraction = 55-60%. Left Ventri cular Filling pattern is normal for age. Right Ventricle The right ventricle is normal in size and function. Atria Normal left and right atrial size and function. Mitral Valve The mitral valve is normal in structure and function. There is no vegetation seen on the mitral valve . There is no mitral valve stenosis. There is trace mitral regurgitation. Tricuspid Valve The tricuspid valve is normal in structure and function. There is no tricuspid valve vegetation. Ther e is mild tricuspid regurgitation. Right ventricular systolic pressure is normal. Aortic Valve The aortic valve opens well. There is no aortic valvular vegetation. No hemodynamically significant v alvular aortic stenosis. No aortic regurgitation is present. Pulmonic Valve The pulmonic valve is not well visualized. There is no pulmonic valvular stenosis. There is no pulmon ic valvular regurgitation. Great Vessels The aortic root is normal size. Pericardium/Pleura There is no pericardial effusion. Interpretation Summary The left ventricular size, thickness and function are normal Ejection Fraction = 55-60%. Left Ventricular Filling pattern is normal for age. The right ventricle is normal in size and function. There is trace mitral regurgitation. There is mild tricuspid regurgitation. Right ventricular systolic pressure is normal. No aortic regurgitation is present. The pulmonic valve is not well visualized. There is no pericardial effusion. MD Antoine *Celestino 03/15/2018 02:57 PM
[2018-03-15] MEDS ORDERED: DEXTROSE 5%-WATER - 50 ML IVPB ONE (20:51)
[2018-03-15] MEDS ORDERED: cefTRIAXone SODIUM 1 GM VIAL ONE (20:51)
[2018-03-15] MEDS: CEFTRIAXONE 1 GM in DEXTROSE 5%-WATER - 50 ML IVPB SCH (20:59)
[2018-03-16] MEDS: ENOXAPARIN NA (PORCINE) 40 MG/0.4 ML DISP.SYRIN SQ SCH (10:11)
[2018-03-16] MEDS: SODIUM CHLORIDE 1,000 ML IV SCH ×2 (10:11→21:11)
--- NOTE | 2018-03-16 12:16 | PN ---
Progress Note, Physician History of Present Illness: Awake, alert No complaints Denies dysuria No c/o flank pain No fever/ chills BC Strep mitis - Current Medication List Current Medications: Active Medications Acetaminophen (Tylenol -) 650 mg PO Q4H PRN PRN Reason: FEVER Enoxaparin Sodium (Lovenox -) 40 mg SQ DAILY [facility] Last Admin: 03/16/18 10:11 Dose: 40 mg Sodium Chloride (Normal Saline -) 1,000 mls @ 125 mls/hr IV [facility] Last Admin: 03/16/18 10:11 Dose: 125 mls/hr Ceftriaxone Sodium 1 gm/ (Dextrose) 50 mls @ 100 mls/hr IVPB HS [facility] Last Admin: 03/15/18 20:59 Dose: 100 mls/hr - Objective Vital Signs: Vital Signs Temperature 97.8 F 03/16/18 10:24 Pulse Rate 61 03/16/18 10:24 Respiratory Rate 20 03/16/18 10:24 Blood Pressure 109/72 03/16/18 10:24 O2 Sat by Pulse Oximetry (%) 98 03/16/18 09:00 Constitutional: Yes: No Distress Eyes: Yes: Conjunctiva Clear Cardiovascular: Yes: Regular Rate and Rhythm, S1, S2 Respiratory: Yes: CTA Bilaterally Gastrointestinal: Yes: Normal Bowel Sounds, Soft. No: Tenderness Edema: No Labs: CBC, BMP 03/15/18 07:30 03/15/18 07:30 Assessment/Plan Pyelonephritis E coli +BC strep mitis ? significance Await additional c/s Echo Continue ceftriaxone
--- NOTE | 2018-03-16 14:23 | PN ---
Teaching Attending Note Name of Resident: Chely Saxena ATTENDING PHYSICIAN STATEMENT I saw and evaluated the patient. I reviewed the resident's note and discussed the case with the resident. I agree with the resident's findings and plan as documented. SUBJECTIVE: Patient is doing better with no acute distress, wants to go home. No fever or chills, no shortness of breath. OBJECTIVE: Vital Signs Temperature 97.8 F 03/16/18 10:24 Pulse Rate 61 03/16/18 10:24 Respiratory Rate 20 03/16/18 10:24 Blood Pressure 109/72 03/16/18 10:24 O2 Sat by Pulse Oximetry (%) 98 03/16/18 09:00 CBCD GENERAL: AOX3 NAD, comfrotable. HEAD: NCAT ;EYES: PERRLA EOMI, sclera anicteric, conjunctiva clear. EARS, NOSE, THROAT: Ears normal, oropharynx clear without exudates. MMM NECK: Normal range of motion, supple without lymphadenopathy, JVD, or masses. LUNGS: CTAB HEART:RRR, normal S1 and S2 without murmur, rub or gallop. ABDOMEN: Soft, NT, ND, normoactive bowel sounds, no guarding, no rebound, no masses. EXTREMITIES: 2+ pulses, warm, well-perfused. No cyanosis. No clubbing. No peripheral edema. NEUROLOGICAL: Cranial nerves II-XII intact. Normal speech. PSYCHIATRIC: Cooperative. Good eye contact. Appropriate mood and affect. SKIN: Warm, dry, normal turgor, no rashes or lesions noted, normal capillary refill. WBC 7.3 K/mm3 (4.0-10.0) 03/15/18 07:30 RBC 4.24 M/mm3 (4.00-5.60) 03/15/18 07:30 Hgb 12.4 GM/dL (11.7-16.9) 03/15/18 07:30 Hct 38.8 % (35.4-49) D 03/15/18 07:30 MCV 91.6 fl (80-96) 03/15/18 07:30 MCHC 31.9 g/dl (32.0-35.9) L 03/15/18 07:30 RDW 13.9 % (11.9-15.9) 03/15/18 07:30 Plt Count 280 K/MM3 (134-434) 03/15/18 07:30 MPV 7.7 fl (7.5-11.1) 03/15/18 07:30 CMP Sodium 140 mmol/L (136-145) 03/15/18 07:30 Potassium 3.9 mmol/L (3.5-5.1) 03/15/18 07:30 Chloride 107 mmol/L (98-107) 03/15/18 07:30 Carbon Dioxide 27 mmol/L (21-32) 03/15/18 07:30 Anion Gap 7 MMOL/L (8-16) L 03/15/18 07:30 BUN 7 mg/dL (7-18) 03/15/18 07:30 Creatinine 0.9 mg/dL (0.55-1.3) 03/15/18 07:30 Creat Clearance w eGFR > 60 (>60) 03/15/18 07:30 Random Glucose 92 mg/dL (74-106) 03/15/18 07:30 Calcium 8.7 mg/dL (8.5-10.1) 03/15/18 07:30 Total Bilirubin 0.3 mg/dL (0.2-1) 03/14/18 06:40 AST 31 U/L (15-37) 03/14/18 06:40 ALT 33 U/L (13-61) 03/14/18 06:40 Alkaline Phosphatase 80 U/L (45-117) 03/14/18 06:40 Total Protein 6.3 g/dl (6.4-8.2) L 03/14/18 06:40 Albumin 2.6 g/dl (3.4-5.0) L 03/14/18 06:40 Current Medications Generic Name Dose Route Start Last Admin Trade Name Freq PRN Reason Stop Dose Admin Acetaminophen 650 mg 03/13/18 22:48 Tylenol - PO Q4H PRN FEVER Enoxaparin Sodium 40 mg 03/14/18 10:00 03/16/18 10:11 Lovenox - SQ 40 mg DAILY GREG Administration Sodium Chloride 1,000 mls @ 125 mls/hr 03/13/18 23:00 03/16/18 10:11 Normal Saline - IV 125 mls/hr ASDIR GREG Administration Ceftriaxone Sodium 1 gm/ 50 mls @ 100 mls/hr 12/20/18 22:00 03/15/18 20:59 Dextrose IVPB 100 mls/hr HS GREG Administration Home Medications Medication Instructions Recorded NK [No Known Home Medication] 03/13/18 03/13/18 23:55 Blood - Peripheral Venous Blood Culture - Preliminary Streptococcus Mitis 03/13/18 19:20 Urine - Urine Clean Catch Urine Culture - Preliminary Lactose Fermenting Neg Bacilli 03/13/18 23:55 Blood - Peripheral Venous Blood Culture - Preliminary NO GROWTH OBTAINED AFTER 24 HOURS, INCUBATION TO CONTINUE FOR [address] A/P - no hydro or stones noted. mild diffuse bladder wall thickening. mild enlarged prostate ASSESSMENT AND PLAN: Patient is a 48 yo M with no significant PMHx , presents to the ED for having fevers, right flank pain 10/10 w/ hematuria and dysuria x 4days. # Acute Pyelonephritis - improving continue IV Rocephin continue , Id on the case , HIv is negative. will repeat the blood culture if negative then can be discharged home. Discussed with ID DVT prophylaxis :Lovenox 40 mg SQ qd Full code med/surg
[2018-03-16] MEDS ORDERED: DEXTROSE 5%-WATER - 50 ML IVPB ONE (21:07)
[2018-03-16] MEDS ORDERED: cefTRIAXone SODIUM 1 GM VIAL ONE (21:07)
[2018-03-16] MEDS: CEFTRIAXONE 1 GM in DEXTROSE 5%-WATER - 50 ML IVPB SCH (21:11)
--- NOTE | 2018-03-17 08:12 | PN ---
Teaching Attending Note Name of Resident: Chely Saxena ATTENDING PHYSICIAN STATEMENT I saw and evaluated the patient. I reviewed the resident's note and discussed the case with the resident. I agree with the resident's findings and plan as documented. SUBJECTIVE: Wants to go home, but still waiting for repeat blood cultures. no fever or chills. OBJECTIVE: Vital Signs Temperature 97.6 F 03/17/18 05:22 Pulse Rate 60 03/17/18 05:22 Respiratory Rate 20 03/17/18 05:22 Blood Pressure 96/58 L 03/17/18 05:22 O2 Sat by Pulse Oximetry (%) 98 03/16/18 21:00 GENERAL: AOX3 NAD, comfrotable. HEAD: NCAT ;EYES: PERRLA EOMI, sclera anicteric, conjunctiva clear. EARS, NOSE, THROAT: Ears normal, oropharynx clear without exudates. MMM NECK: Normal range of motion, supple without lymphadenopathy, JVD, or masses. LUNGS: CTAB HEART:RRR, normal S1 and S2 without murmur, rub or gallop. ABDOMEN: Soft, NT, ND, normoactive bowel sounds, no guarding, no rebound, no masses. EXTREMITIES: 2+ pulses, warm, well-perfused. No cyanosis. No clubbing. No peripheral edema. NEUROLOGICAL: Cranial nerves II-XII intact. Normal speech. PSYCHIATRIC: Cooperative. Good eye contact. Appropriate mood and affect. SKIN: Warm, dry, normal turgor, no rashes or lesions noted, normal capillary refill. CBCD WBC 7.3 K/mm3 (4.0-10.0) 03/15/18 07:30 RBC 4.24 M/mm3 (4.00-5.60) 03/15/18 07:30 Hgb 12.4 GM/dL (11.7-16.9) 03/15/18 07:30 Hct 38.8 % (35.4-49) D 03/15/18 07:30 MCV 91.6 fl (80-96) 03/15/18 07:30 MCHC 31.9 g/dl (32.0-35.9) L 03/15/18 07:30 RDW 13.9 % (11.9-15.9) 03/15/18 07:30 Plt Count 280 K/MM3 (134-434) 03/15/18 07:30 MPV 7.7 fl (7.5-11.1) 03/15/18 07:30 CMP Sodium 140 mmol/L (136-145) 03/15/18 07:30 Potassium 3.9 mmol/L (3.5-5.1) 03/15/18 07:30 Chloride 107 mmol/L (98-107) 03/15/18 07:30 Carbon Dioxide 27 mmol/L (21-32) 03/15/18 07:30 Anion Gap 7 MMOL/L (8-16) L 03/15/18 07:30 BUN 7 mg/dL (7-18) 03/15/18 07:30 Creatinine 0.9 mg/dL (0.55-1.3) 03/15/18 07:30 Creat Clearance w eGFR > 60 (>60) 03/15/18 07:30 Random Glucose 92 mg/dL (74-106) 03/15/18 07:30 Calcium 8.7 mg/dL (8.5-10.1) 03/15/18 07:30 Total Bilirubin 0.3 mg/dL (0.2-1) 03/14/18 06:40 AST 31 U/L (15-37) 03/14/18 06:40 ALT 33 U/L (13-61) 03/14/18 06:40 Alkaline Phosphatase 80 U/L (45-117) 03/14/18 06:40 Total Protein 6.3 g/dl (6.4-8.2) L 03/14/18 06:40 Albumin 2.6 g/dl (3.4-5.0) L 03/14/18 06:40 Current Medications Generic Name Dose Route Start Last Admin Trade Name Freq PRN Reason Stop Dose Admin Acetaminophen 650 mg 03/13/18 22:48 Tylenol - PO Q4H PRN FEVER Enoxaparin Sodium 40 mg 03/14/18 10:00 03/16/18 10:11 Lovenox - SQ 40 mg DAILY GREG Administration Sodium Chloride 1,000 mls @ 125 mls/hr 03/13/18 23:00 03/16/18 21:11 Normal Saline - IV 125 mls/hr ASDIR GREG Administration Ceftriaxone Sodium 1 gm/ 50 mls @ 100 mls/hr 03/14/18 22:00 03/16/18 21:11 Dextrose IVPB 100 mls/hr HS GREG Administration Home Medications Medication Instructions Recorded NK [No Known Home Medication] 03/13/18 Microbiology 03/13/18 23:55 Blood - Peripheral Venous Blood Culture - Preliminary NO GROWTH OBTAINED AFTER 72 HOURS, INCUBATION TO CONTINUE FOR 2 DAYS. 03/15/18 12:43 Blood - Peripheral Venous Blood Culture - Preliminary NO GROWTH OBTAINED AFTER 24 HOURS, INCUBATION TO CONTINUE FOR 4 DAYS. 03/15/18 12:32 Blood - Peripheral Venous Blood Culture - Preliminary NO GROWTH OBTAINED AFTER 24 HOURS, INCUBATION TO CONTINUE FOR 4 DAYS. 03/13/18 23:55 Blood - Peripheral Venous Blood Culture - Final Streptococcus Mitis 03/13/18 19:20 Urine - Urine Clean Catch Urine Culture - Final Escherichia Coli CT A/P - no hydro or stones noted. mild diffuse bladder wall thickening. mild enlarged prostate ASSESSMENT AND PLAN: Patient is a 48 yo M with no significant PMHx , presents to the ED for having fevers, right flank pain 10/10 with hematuria and dysuria x 4days. # Acute Pyelonephritis - continue IV Rocephin , if repeat blood culture is negative will discharge the patient home. Id on the case.HIv is negative. will repeat the blood culture if negative then can be discharged home DVT prophylaxis :Lovenox 40 mg SQ qd Full code med/surg
[2018-03-17] MEDS: ENOXAPARIN NA (PORCINE) 40 MG/0.4 ML DISP.SYRIN SQ SCH (09:39)
--- NOTE | 2018-03-17 12:25 | PN ---
Physical Exam: SUBJECTIVE: Patient seen and examined at bedside this morning. No acute events overnight. Patient has no complaints. No dysuria or hematuria since admission. Denies fever, chills, headache, nausea, vomiting, SOB, abdominal pain, flank pain, diarrhea. OBJECTIVE: Vital Signs Period Temp Pulse Resp BP Sys/Deleon Pulse Ox Last 24 Hr 97.6 F-97.8 F 54-60 20-20 96-104/58-70 98 GENERAL: The patient is awake, alert, and fully oriented, in no acute distress. HEAD: Normal with no signs of trauma. EYES: PERRLA, EOMI, sclera anicteric, conjunctiva clear. ENT: Ears normal, nares patent, oropharynx clear without exudates, moist mucous membranes. NECK: Trachea midline, full range of motion, supple. LUNGS: Breath sounds equal, clear to auscultation bilaterally. HEART: Regular rate and rhythm, S1, S2 without murmur, rub or gallop. ABDOMEN: Soft, nontender, nondistended, normoactive bowel sounds. EXTREMITIES: 2+ pulses, warm, well-perfused, no edema. NEUROLOGICAL: Cranial nerves II through XII grossly intact. Normal speech, normal gait. SKIN: Warm, dry, normal turgor, no rashes or lesions noted Active Medications Generic Name Dose Route Start Last Admin Trade Name Freq PRN Reason Stop Dose Admin Acetaminophen 650 mg 03/13/18 22:48 Tylenol - PO Q4H PRN FEVER Enoxaparin Sodium 40 mg 03/14/18 10:00 03/17/18 09:39 Lovenox - SQ 40 mg DAILY GREG Administration Sodium Chloride 1,000 mls @ 125 mls/hr 03/13/18 23:00 03/16/18 21:11 Normal Saline - IV 125 mls/hr ASDIR GERG Administration Ceftriaxone Sodium 1 gm/ 50 mls @ 100 mls/hr 03/14/18 22:00 03/16/18 21:11 Dextrose IVPB 100 mls/hr HS GREG Administration ASSESSMENT/PLAN: Patient is a 48 year old male with no significant past medical history, presented with hematuria and dysuria, accompanied by suprapubic and right flank pain for 5 days. #Complicated cystitis -UA: Blood 2+, RBC 10, LE 2+, WBC 98 -Leukocytosis resolved -CTAP: No evidence of urolithiasis or hydronephrosis. Probable mild diffuse urinary bladder wall thickening - ?on the basis of acute and/or chronic cystitis vs chronic outlet obstruction (mild prostate enlargement) -Urine culture - +E.coli -ID (Dr. Rizo) consulted. Recommendations appreciated. -Continue Ceftriaxone 1gm daily day 4 -HIV - negative -Urine for gc/chlamydia -ESR/CRP - 74/1.7 -positive blood culture growing strep -- likely contaminant? -Repeat blood culture -Echo done - LV normal, EF 55-60% -Follow up cultures -Will probably discharge tomorrow, pending blood culture results #FEN -Not on any standing fluids. -encourage increased oral fluid intake. -electrolytes wnl, -regular diet #Prophylaxis -Lovenox 40mg sq daily #Disposition -full code -med surg Visit type - Emergency Visit Emergency Visit: Yes ED Registration Date: 03/13/18 Care time: The patient presented to the Emergency Department on the above date and was hospitalized for further evaluation of their emergent condition. - New Patient This patient is new to me today: No - Critical Care Critical Care patient: No
[2018-03-17] MEDS: SODIUM CHLORIDE 1,000 ML IV SCH ×2 (12:30→21:21)
[2018-03-17] MEDS ORDERED: DEXTROSE 5%-WATER - 50 ML IVPB ONE (21:12)
[2018-03-17] MEDS ORDERED: cefTRIAXone SODIUM 1 GM VIAL ONE (21:12)
[2018-03-17] MEDS: CEFTRIAXONE 1 GM in DEXTROSE 5%-WATER - 50 ML IVPB SCH (21:20)
[2018-03-17 23:28] VITALS: PULSE 65
[2018-03-18 06:32] VITALS: BP 104/65; TEMP 97.8
[2018-03-18] MEDS: ENOXAPARIN NA (PORCINE) 40 MG/0.4 ML DISP.SYRIN SQ SCH (10:42)
--- NOTE | 2018-03-18 11:40 | DS ---
Physical Exam: SUBJECTIVE: Patient seen and examined at bedside this morning. No acute events overnight. Patient has been feeling well, with no episodes of dysuria or hematuria, fever or chills since admission. OBJECTIVE: Vital Signs Period Temp Pulse Resp BP Sys/Deleon Pulse Ox Last 24 Hr 97.8 F-98 F 60-65 20-20 104-111/65-70 98-100 PHYSICAL EXAM GENERAL: The patient is awake, alert, and fully oriented, in no acute distress. HEAD: Normal with no signs of trauma. EYES: PERRLA, EOMI, sclera anicteric, conjunctiva clear. ENT: Ears normal, nares patent, oropharynx clear without exudates, moist mucous membranes. NECK: Trachea midline, full range of motion, supple. LUNGS: Breath sounds equal, clear to auscultation bilaterally. HEART: Regular rate and rhythm, S1, S2 without murmur, rub or gallop. ABDOMEN: Soft, nontender, nondistended, normoactive bowel sounds. EXTREMITIES: 2+ pulses, warm, well-perfused, no edema. NEUROLOGICAL: Cranial nerves II through XII grossly intact. Normal speech, normal gait. SKIN: Warm, dry, normal turgor, no rashes or lesions noted LABS CBC, BMP 03/15/18 07:30 03/15/18 07:30 Urine Test Results Urine Color Ltyellow 03/13/18 19:20 Urine Appearance Clear 03/13/18 19:20 Urine pH 6.0 (5.0-8.0) 03/13/18 19:20 Ur Specific [place] 1.011 (1.010-1.035) 03/13/18 19:20 Urine Protein Negative (NEGATIVE) 03/13/18 19:20 Urine Glucose (UA) Negative (NEGATIVE) 03/13/18 19:20 Urine Ketones Negative (NEGATIVE) 03/13/18 19:20 Urine Blood 2+ (NEGATIVE) H 03/13/18 19:20 Urine Nitrite Negative (NEGATIVE) 03/13/18 19:20 Urine Bilirubin Negative (<2.0 mg/dL) 03/13/18 19:20 Ur Leukocyte Esterase 2+ (NEGATIVE) H 03/13/18 19:20 Urine Mucus Rare 03/13/18 19:20 -CTAP: No evidence of urolithiasis or hydronephrosis. Probable mild diffuse urinary bladder wall thickening - ?on the basis of acute and/or chronic cystitis vs chronic outlet obstruction (mild prostate enlargement) HOSPITAL COURSE: Date of Admission:03/13/18 Date of Discharge: 03/18/18 Patient is a 48 year old male with no significant past medical history presented with dysuria, hematuria, accompanied with subjective fevers and right flank pain for 4 days. Urinalysis was done which showed patient had a urinary tract infection. ID consulted. CT scan showed no evidence of urolithiasis or hydronephrosis. Patient was started on IV Ceftriaxone. Echo was done and was normal. Patient remained asymptomatic the rest of his hospital stay. He was discharged with instructions to continue Levaquin 500mg for 5 days. Minutes to complete discharge: 40 Discharge Summary Reason For Visit: PYELONEPHRITIS Current Active Problems Pyelonephritis (Acute) Condition: Improved - Instructions Diet, Activity, Other Instructions: Please relay instructions in Macedonian. You were admitted because you have pain when you urinate and there is blood in your urine. You were diagnosed with a urinary tract infection. You were treated with antibiotics. Please take the following medication as prescribed: 1. Levaquin 500mg once a day for 5 days. Eat a healthy diet and drink plenty of water. Follow-up with your primary care doctor within 1 week. If you do not have one, please call the resident medical clinic at [phone] [facility] to schedule an appointment. Call 911 or go to the ED if with any worsening fever, chills, headache, dizziness, nausea, vomiting, shortness of breath, chest pain, bloody urine, or any new concerns noted. Referrals: [facility] [place] [Provider Group] - 1 Week Deisi Galindo MD [Staff Physician] - Disposition: HOME - Home Medications Comprehensive Discharge Medication List: Ambulatory Orders levoFLOXacin [Levaquin -] 500 mg PO DAILY #5 tablet 03/18/18 This patient is new to me today: No Emergency Visit: Yes ED Registration Date: 03/13/18 Care time: The patient presented to the Emergency Department on the above date and was hospitalized for further evaluation of their emergent condition. Critical Care patient: No - Discharge Referral Referred to [facility] No
--- NOTE | 2018-03-18 13:20 | PN ---
Teaching Attending Note Name of Resident: Chely Saxena ATTENDING PHYSICIAN STATEMENT I saw and evaluated the patient. I reviewed the resident's note and discussed the case with the resident. I agree with the resident's findings and plan as documented. SUBJECTIVE: Patient is comfortable with no distress. would like to go home. No fever or chills, no shortness of breath. OBJECTIVE: Vital Signs Temperature 97.8 F 03/18/18 06:00 Pulse Rate 65 03/18/18 06:00 Respiratory Rate 20 03/18/18 09:00 Blood Pressure 104/65 03/18/18 06:00 O2 Sat by Pulse Oximetry (%) 100 03/18/18 09:00 GENERAL: AOX3 NAD, comfrotable. HEAD: NCAT ;EYES: PERRLA EOMI, sclera anicteric, conjunctiva clear. EARS, NOSE, THROAT: Ears normal, oropharynx clear without exudates. MMM NECK: Normal range of motion, supple without lymphadenopathy, JVD, or masses. LUNGS: CTAB HEART:RRR, normal S1 and S2 without murmur, rub or gallop. ABDOMEN: Soft, NT, ND, normoactive bowel sounds, no guarding, no rebound, no masses. EXTREMITIES: 2+ pulses, warm, well-perfused. No cyanosis. No clubbing. No peripheral edema. NEUROLOGICAL: Cranial nerves II-XII intact. Normal speech. PSYCHIATRIC: Cooperative. Good eye contact. Appropriate mood and affect. SKIN: Warm, dry, normal turgor, no rashes or lesions noted, normal capillary refill. CBCD WBC 7.3 K/mm3 (4.0-10.0) 03/15/18 07:30 RBC 4.24 M/mm3 (4.00-5.60) 03/15/18 07:30 Hgb 12.4 GM/dL (11.7-16.9) 03/15/18 07:30 Hct 38.8 % (35.4-49) D 03/15/18 07:30 MCV 91.6 fl (80-96) 03/15/18 07:30 MCHC 31.9 g/dl (32.0-35.9) L 03/15/18 07:30 RDW 13.9 % (11.9-15.9) 03/15/18 07:30 Plt Count 280 K/MM3 (134-434) 03/15/18 07:30 MPV 7.7 fl (7.5-11.1) 03/15/18 07:30 CMP Sodium 140 mmol/L (136-145) 03/15/18 07:30 Potassium 3.9 mmol/L (3.5-5.1) 03/15/18 07:30 Chloride 107 mmol/L (98-107) 03/15/18 07:30 Carbon Dioxide 27 mmol/L (21-32) 03/15/18 07:30 Anion Gap 7 MMOL/L (8-16) L 03/15/18 07:30 BUN 7 mg/dL (7-18) 03/15/18 07:30 Creatinine 0.9 mg/dL (0.55-1.3) 03/15/18 07:30 Creat Clearance w eGFR > 60 (>60) 03/15/18 07:30 Random Glucose 92 mg/dL (74-106) 03/15/18 07:30 Calcium 8.7 mg/dL (8.5-10.1) 03/15/18 07:30 Total Bilirubin 0.3 mg/dL (0.2-1) 03/14/18 06:40 AST 31 U/L (15-37) 03/14/18 06:40 ALT 33 U/L (13-61) 03/14/18 06:40 Alkaline Phosphatase 80 U/L (45-117) 03/14/18 06:40 Total Protein 6.3 g/dl (6.4-8.2) L 03/14/18 06:40 Albumin 2.6 g/dl (3.4-5.0) L 03/14/18 06:40 Home Medications Medication Instructions Recorded levoFLOXacin [Levaquin -] 500 mg PO DAILY #5 tablet 03/18/18 Home Medications Medication Instructions Recorded levoFLOXacin [Levaquin -] 500 mg PO DAILY #5 tablet 03/18/18 Microbiology 03/15/18 12:43 Blood - Peripheral Venous Blood Culture - Preliminary NO GROWTH OBTAINED AFTER 72 HOURS, INCUBATION TO CONTINUE FOR 2 DAYS. 03/15/18 12:32 Blood - Peripheral Venous Blood Culture - Preliminary NO GROWTH OBTAINED AFTER 72 HOURS, INCUBATION TO CONTINUE FOR 2 DAYS. 03/13/18 23:55 Blood - Peripheral Venous Blood Culture - Preliminary NO GROWTH OBTAINED AFTER 96 HOURS, INCUBATION TO CONTINUE FOR 1 DAYS. 03/16/18 15:20 Blood - Peripheral Venous Blood Culture - Preliminary NO GROWTH OBTAINED AFTER 24 HOURS, INCUBATION TO CONTINUE FOR 4 DAYS. 03/16/18 15:23 Blood - Peripheral Venous Blood Culture - Preliminary NO GROWTH OBTAINED AFTER 24 HOURS, INCUBATION TO CONTINUE FOR 4 DAYS. 03/13/18 23:55 Blood - Peripheral Venous Blood Culture - Final Streptococcus Mitis 03/13/18 19:20 Urine - Urine Clean Catch Urine Culture - Final Escherichia Coli ASSESSMENT AND PLAN: Patient is a 48 yo M with no significant PMHx , presents to the ED for having fevers, right flank pain 10/10 with hematuria and dysuria x 4days. # Acute Pyelonephritis - received IV Rocephin , repeat blood cultures are negative. discussed with ID, can send the patient home on 5 more days of oral Levaquin . Id on the case. HIv is negative. discharge the patient home.
== END 2018-03-18 12:22 | disposition home or self-care (01) | DRG 463 ==
LOC: JER 18:27 → JERBED 21:34 → J6S 03-14 14:12
PROVIDERS: ADMIT Internal Medicine; ATTEND Internal Medicine
DX: N10 Acute pyelonephritis (principal); R31.9 Hematuria, unspecified; R50.9 Fever, unspecified; D72.829 Elevated white blood cell count, unspecified; B96.20 Unspecified Escherichia coli [E. coli] as the cause of diseases classified elsewhere
CPT/HCPCS: 36415; 74176; 76775-TC; 80048; 80053; 81003; 81015; 83735; 84100; 85025; 85651; 86140; 87040; 87086; 87186; 87389; 93005; 93010; 93306-TC; 99285-25; J7030